=== PATIENT | female | born 1990 | race Native Hawaiian/Other Pacific Islander ===

== ENCOUNTER 2019-04-27 06:34 | Emergency (ER) | payer OTHER ==
[~2019-04-27] VITALS: Ht 165.1 cm; Wt 86.2 kg
[2019-04-27 07:30] LABS: PLATELET COUNT 197 K/uL (152-353)
[2019-04-27 07:36] LABS: POTASSIUM 3.7 mmol/L (3.6-5.2)
[2019-04-27 08:20] VITALS: BP 116/20; TEMP 99.3
== END 2019-04-27 08:26 | disposition home or self-care (01) ==
LOC: ED 06:34
PROVIDERS: Family Medicine
DX: J01.80 Other acute sinusitis (principal); B97.89 Other viral agents as the cause of diseases classified elsewhere; R11.2 Nausea with vomiting, unspecified; R53.83 Other fatigue
CPT/HCPCS: 80053; 85027; 87502; 87651; 96360; 96374; 99284; J1885; J2405; J2930